=== PATIENT | female | born 1995 | race Caucasian/White ===

== ENCOUNTER 2017-03-31 15:59 | Outpatient (CLI) | payer OTHER ==
--- NOTE | 2017-03-31 17:45 | DIAGNOSTIC IMAGING REPORT ---
PROCEDURE: US 1ST TRIMESTER INDICATION: DATING,VIABILITY TECHNIQUE: Walter scale, color, and spectral Doppler transabdominal sonographic images of the first trimester gravid uterus were obtained. COMPARISON: None. FINDINGS: TRANSABDOMINAL SCANS: The gravid uterus is anteverted in position and contains a fundal gestational sac with a moderate residual response. There is a trace of perigestational hemorrhage. On the right the bleed measures 2.5 x 1.7 x 1.4 cm. On the left it measures 1.6 x 1.6 cm. The cervix is closed. A pole with an average crown-rump length of 2.2 cm which corresponds to 8 weeks and 6 days, is present. There is detectable cardiac activity in the fetus of 162 beats per minute. A yolk sac was visible. IMPRESSION: 1. Single living intrauterine with gestational age of 8 weeks and 6-day and NARINDER 11/04/2017 2. Closed cervix 3. Trace perigestational hemorrhage.
== END 2017-03-31 23:00 | disposition home or self-care (01) ==
LOC: US SRH 15:59
DX: Z34.91 Encounter for supervision of normal pregnancy, unspecified, first trimester (principal); Z3A.08 8 weeks gestation of pregnancy